=== PATIENT | male | born 1985 | race Caucasian/White ===

== ENCOUNTER 2020-02-18 19:41 | Emergency (ER) | payer OTHER, SELFPAY ==
[2020-02-18 19:45] VITALS: BP 162/91; PULSE 76; RESP 18; TEMP 36.8; O2SAT 98
[2020-02-18 20:15] VITALS: BP 165/98; PULSE 77; RESP 16; O2SAT 97
--- NOTE | 2020-02-18 20:15 | ED_ITS ---
HPI - Skin/Abscess/Foreign Bdy General: Chief complaint: Skin/Abscess/Foreign Body Stated complaint: spider bite Time Seen by Provider: 02/18/20 20:11 History of Present Illness: HPI narrative: Patient comes in with right ring finger redness and swelling. Was seen in urgent care today got antibiotics prescribed was unable to fill that prescription. Complains about pain to the right middle joint. Does have drainage from the wound site which is distal to t he right middle joint. Is on the dorsal surface. MD complaint: insect bite/sting Onset (ago): day(s) Tetanus up to date: yes Location: R hand Severity: moderate Severity scale (1-10): 6 Quality: aching and constant Pain Consistency: constant Relieving factors: none Exacerbating factors: movement Associated symptoms: Deny chills, fever(s), nausea or vomiting Review of Systems Const: Denies: fever(s), chills or body aches Eyes: Denies: change in vision or blurry vision ENMT: Denies: throat pain or nasal congestion Card: Denies: chest pain or dyspnea on exertion Resp: Denies: dyspnea, productive cough or non-productive cough GI: Denies: abdominal pain, nausea or vomiting : Denies: difficulty urinating Musc: Denies: extremity pain Skin/Breast: Reports: erythema, skin tenderness, skin swelling and other (Drainage on right ring finger); Denies: rash Neuro: Denies: headache(s) Psych: Denies: anxiety or depression Matthew/Lymph: Denies: easy bruising PFS ED PFSH: Social History (Updated 02/18/20 @ 18:37 by Keke Buchanan LPN) Smoking and tobacco status: never smoked Alcohol intake: never Physical Exam Const: COMMON NORMALS: no acute distress, average body habitus and patient oriented x3 HENMT: COMMON NORMALS: normocephalic HEAD & SCALP: normal to inspection and normocephalic FACE & SINUS: normal facial exam Eye: COMMON NORMALS: conjunctivae normal GENERAL EYE: appearance normal, both eyes and all related structures CONJUNCTIVA: Yes conjunctivae normal Neck/C-Spine: COMMON NORMALS: no JVD Chest: COMMONS NORMALS: normal inspection of the chest Resp: COMMON NORMALS: normal respiratory effort and clear to auscultation bilaterally AUSCULTATION: clear to auscultation bilaterally Cardio: COMMON NORMALS: no JVD, regular rate and regular rhythm RATE: regular rate RHYTHM: regular rhythm GI: COMMON NORMALS: Normal to inspection, nondistended, normoactive bowel sounds present Extremity: COMMON NORMALS: normal to inspection and full ROM RIGHT UPPER EXTREMITY: Yes hand & digits (Right ring finger with swelling at the MIP joint tender cannot move very well does have an open sore distal that and is draining this on the dorsal surface) Neuro: COMMON NORMALS: patient oriented x3 Procedures Abscess I/D Site: hand Side (if applicable): right Local Anesthetic: lidocaine 1% Amount of anesthesia used (mL): 0.5 Technique: incised with #11 blade Amount of fluid expressed (mL): 1 Irrigation: No Packing used?: none Course Vital Signs: Vital signs: Vital Signs Temperature 98.3 F 02/18/20 19:45 Pulse Rate 77 02/18/20 20:15 Respiratory Rate 16 02/18/20 20:15 Blood Pressure 165/98 02/18/20 20:15 Pulse Oximetry 97 02/18/20 20:15 MDM - Skin/Abscess/Foreign Bdy 2 Lab Data: Labs: Lab Results 02/18/20 Range/Units 18:22 WBC 15.7 H (4.0-10.0) 10^3/ uL RBC 4.57 (4.1-5.3) 10^6/u L Hgb 14.6 (11.7-16.6) g/dL Hct 43.3 (42.0-52.0) % MCV 94.7 H (80-94) fL MCH 31.9 (28.0-34.0) pg MCHC 33.7 (30.0-36.0) g/dL RDW 12.2 (12.1-15.1) % Plt Count 226 (130-400) 10^3/c mm MPV 10.7 H (7.4-10.4) fL Neut % (Auto) 82.8 % Lymph % (Auto) 6.8 % Waller % (Auto) 8.4 % Eos % (Auto) 1.5 % Baso % (Auto) 0.2 % Neut # (Auto) 13.01 H (1.8-7.7) 10^3/u L Lymph # (Auto) 1.1 (0.8-4.8) 10^3/u L Waller # (Auto) 1.3 H (0.2-0.9) 10^3/u L Eos # (Auto) 0.2 (0.0-0.8) 10^3/u L Baso # (Auto) 0.0 (0.0-0.1) 10^3/u L Nucleated RBC % (a uto) 0 % Nucleated RBCs # 0.0 /100WBC Discharge Plan Discharge Patient Disposition: Home Clinical Impression: Cellulitis Qualifiers: Site of cellulitis: extremity Site of cellulitis of extremity: finger Laterality: right Qualified Code(s): L03.011 - Cellulitis of right finger Condition: Stable Prescriptions: New hydrocodone-acetaminophen 5-325 mg tablet 1 tab PO Q6H PRN (Reason: pain) Qty: 7 RF: 0 No Action No Known Home Medications RF: 0 Discharge Orders: Discharge Order (Routine); Ordered 02/18/20 Ordered By: Angel Wang Discharge Diet: Usual diet Discharge Activity: Increase activity as tolerated Patient Instructions: Cellulitis (ED) Activity Restrictions/Additional Instructions: Follow-up with medical provider as directed. Take medications as prescribed. Return to the ER or your medical provider if condition worsens. Please read and understand discharge instructions. If any questions ask please. 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
[2020-02-18 20:34] LABS: Basophils % 0.2 %; Eosinophils # 0.2 10^3/uL (0.0-0.8); Eosinophils % 1.5 %; Hematocrit 43.3 % (42.0-52.0); Hemoglobin 14.6 g/dL (11.7-16.6); Lymphocytes # 1.1 10^3/uL (0.8-4.8); Lymphocytes % 6.8 %; Mean Corpuscular HGB Conc 33.7 g/dL (30.0-36.0); Mean Corpuscular Hemoglobin 31.9 pg (28.0-34.0); Mean Corpuscular Volume 94.7 fL (80-94); Mean Platelet Volume 10.7 fL (7.4-10.4); Monocytes # 1.3 10^3/uL (0.2-0.9); Monocytes % 8.4 %; Neutrophils # 13.01 10^3/uL (1.8-7.7); Neutrophils % 82.8 %; Nucleated Red Blood Cells % 0 %; Platelet Count 226 10^3/cmm (130-400); Red Blood Count 4.57 10^6/uL (4.1-5.3); Red Cell Distribution Width 12.2 % (12.1-15.1); White Blood Count 15.7 10^3/uL (4.0-10.0)
[2020-02-18] MEDS: HYDROcodone-acetaminophen 7.5-325 mg Tablet 1 TAB PO (20:35)
[2020-02-18] MEDS: cefTRIAXone 1,000 MG in sodium chloride 0.9% (plus) 50 ML 100 MG IV (20:43)
[2020-02-18 21:24] VITALS: BP 145/80; PULSE 82; RESP 18; O2SAT 97
== END 2020-02-18 21:27 | disposition home or self-care (01) ==
PROVIDERS: Emergency Provider Nurse Practitioner Family
DX: L03.011 Cellulitis of right finger (principal); L02.511 Cutaneous abscess of right hand
CPT/HCPCS: 10060; 12345; 36415; 85025; 87040; 87070; 96365; 99283; J0696

== ENCOUNTER 2020-02-19 05:51 | Inpatient (IN) | payer SELFPAY ==
[2020-02-19] VITALS (14 sets, daily range): BP systolic 114–143; BP diastolic 71–90; PULSE 70–98; RESP 14–20; TEMP 36.8–37.4; O2SAT 96–98; BMI 27.3
--- NOTE | 2020-02-19 05:57 | ED_ITS ---
HPI - Animal Bite General: Chief Complaint: Animal Bite Stated Complaint: spider bite Time Seen by Provider: 02/19/20 05:54 History of Present Illness: HPI narrative: 34-year-old male presents to the ER via EMS. This is his third visit in 2 days for a reported insect bite possible spider bite on his right third finger. He was initially seen by SHANTHI and prescribed Bactrim. He returned to the emergency room later the same day/last night and seen Angel Wang, and was given hydrocodone. Returns to the emergency room this morning via EMS. Overnight the swelling in his hand is increased to the point where he has swelling in the entire hand. He can flex and extend at the wrist without any significant pain and he is noticed significant swelling on the input and side of the elbow he even has discomfort up in the axilla. He is not had any shortness of breath he is not had any cough. He denies being urinating when he is aware of that is been COVID positive. MD complaint: other (Possible insect bite) Onset (ago): day(s) (1) Animal: other (Patient feels it was a spider bite was not witnessed) Mechanism: bite Location: other Location - Extremities: Right: hand Pain description: sharp Associated symptoms: Reports no associated symptoms; Deny chills or fever(s) Treatments prior to arrival: wound dressing(s) Review of Systems Const: Denies: fever(s), chills, body aches, change in appetite, fatigue or malaise ENMT: Denies: throat pain, ear or mastoid pain, nasal discharge or nasal congestion Card: Denies: chest pain, edema, dyspnea on exertion or orthopnea Resp: Denies: dyspnea, productive cough or non-productive cough GI: Denies: abdominal pain, nausea, vomiting, hematemesis, coffee ground emesis, diarrhea, constipation, bloating, hematochezia or melena : Denies: flank pain, dysuria, urinary frequency or urinary urgency Skin/Breast: Denies: rash or pruritus PFSH ED PFSH: Medical History (Updated 02/19/20 @ 06:33 by Jose E Alarcon DO) No significant past medical history Surgical History (Updated 02/19/20 @ 06:31 by Jose E Alarcon DO) No history of previous surgery Social History Smoking and tobacco status: never smoked Alcohol intake: never Physical Exam Const: COMMON NORMALS: no acute distress GENERAL APPEARANCE: cooperative and comfortable ORIENTATION/CONSCIOUSNESS: Yes awake, Yes oriented to person, Yes oriented to place and Yes oriented to time Eye: COMMON NORMALS: Equal, round and reactive pupils present, EOMs intact bilaterally, conjunctivae normal and no scleral icterus CONJUNCTIVA: Yes conjunctivae normal PUPIL: Yes Equal, round and reactive pupils present Neck/C-Spine: COMMON NORMALS: full ROM, no lymphadenopathy, supple and no JVD Lymph: LYMPHATIC: no lymphadenopathy noted and no lymphedema noted Resp: COMMON NORMALS: normal respiratory effort, No retractions, No use of accessory muscles and clear to auscultation bilaterally AUSCULTATION: clear to auscultation bilaterally Cardio: COMMON NORMALS: no JVD, regular rate, regular rhythm and No murmurs present (Cardio) RATE: regular rate RHYTHM: regular rhythm GI: COMMON NORMALS: Soft to palpation and No hepatosplenomegaly present AUSCULTATION: Yes normoactive bowel sounds PALPATION: Yes Soft to palpation, No Tenderness to palpation present (GI), No Guarding due to palpation present (GI) and Yes No hepatosplenomegaly present Extremity: NARRATIVE EXTREMITY EXAM: Right third finger is inflamed and swollen with some sloughing of the skin there is a definite abscess point. There is some necrotic skin on the door on the lateral aspect of the third finger there is no active drainage there is no palpable fluctuant areas. He does have significant amount of epitrochlear lymphadenopathy with swollen matted lymph nodes the distal bicep is also somewhat inflamed and firm. There is significant swelling throughout the whole hand he can flex and extend at the wrist without any pain with passive range of motion. There is no swelling of the forearm itself there is no palpable lymph nodes in the axilla although it is somewhat tender. There is no lymphatic streaking at this point. Neuro: SENSORIUM/ORIENTATION: Yes oriented to person, Yes oriented to place and Yes oriented to time Skin: COMMON NORMALS: no rashes or lesions noted GENERAL SKIN EXAM: no rashes or lesions noted Course Vital Signs: Vital signs: Vital Signs Temperature 99.3 F 02/19/20 05:56 Pulse Rate 96 02/19/20 07:49 Respiratory Rate 16 02/19/20 07:49 Blood Pressure 139/84 02/19/20 07:49 Pulse Oximetry 97 02/19/20 07:49 MDM - Animal Bite MDM Narrative: Medical decision making narrative: This is patient's third visit in approximately 24 hours. Is is advanced quite significantly in a short period of time reviewing the previous notes. He is definitely failed outpatient therapy and I do not think at this point that oral antibiotics will be adequate for treatment for the infection suspect this is MRSA he does have a little bit of a low-grade fever as well patient has been appropriately cultured unfortunately really cannot culture the anything from the finger at this time. He has had blood cultures will start him on IV vancomycin will admit to the hospital for inpatient care and consultation by surgery. Reviewed the ER visit last night look like they did drain a little bit of fluid from it unfortunately does not appear a culture was done. Will admit to hospitalist consult orthopedics Lab Data: Labs: Lab Results 02/19/20 02/19/20 02/19/20 Range/Units 06:43 06:43 06:43 WBC 16.3 H (4.0-10.0) 10^3/ uL RBC 4.44 (4.1-5.3) 10^6/u L Hgb 14.2 (11.7-16.6) g/dL Hct 41.1 L (42.0-52.0) % MCV 92.6 (80-94) fL MCH 32.0 (28.0-34.0) pg MCHC 34.5 (30.0-36.0) g/dL RDW 12.1 (12.1-15.1) % Plt Count 208 (130-400) 10^3/c mm MPV 10.9 H (7.4-10.4) fL Neut % (Auto) 82.1 % Lymph % (Auto) 6.0 % Schley % (Auto) 10.4 % Eos % (Auto) 1.0 % Baso % (Auto) 0.2 % Neut # (Auto) 13.33 H (1.8-7.7) 10^3/u L Lymph # (Auto) 1.0 (0.8-4.8) 10^3/u L Schley # (Auto) 1.7 H (0.2-0.9) 10^3/u L Eos # (Auto) 0.2 (0.0-0.8) 10^3/u L Baso # (Auto) 0.0 (0.0-0.1) 10^3/u L Nucleated RBC % (a uto) 0 % Nucleated RBCs # 0.0 /100WBC ESR 18 H (0-10) mm/hr Sodium 134 L (136-145) mmol/L Potassium 3.5 (3.5-5.1) mmol/L Chloride 99 (98-107) mmol/L Carbon Dioxide 26 (22-29) mmol/L Anion Gap 12.5 (5-19) BUN 7 (6-20) mg/dL Creatinine 0.5 L (0.7-1.2) mg/dL GFR Calculation 192.7 H (90-130) mL/min Glucose 127 H (65-115) mg/dL Calculated Osmolal ity 275 L (285-295) mOsm/k g Calcium 8.4 L (8.5-10.5) mg/dL Total Bilirubin 0.8 (0.15-1.2) mg/dL AST 22 (0-40) U/L ALT 25 (0-41) U/L Alkaline Phosphata se 69 (40-130) IU/L C-Reactive Protein 34.2 H (0.0-4.9) mg/L Total Protein 7.2 (6.6-8.7) g/dL Albumin 4.3 (3.5-5.2) g/dL Globulin 2.9 (1.3-4.6) g/dL Discharge Plan Discharge Patient Disposition: Admitted As Inpatient Admit Provider: Nicolle Guzman Clinical Impression: Cellulitis Condition: Stable Coding Level of Care Code 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
--- NOTE | 2020-02-19 06:28 | CTR_ITS ---
PROCEDURE INFORMATION: Exam: CT Right Upper Extremity With Contrast, Hand Exam date and time: 02/19/2020 6:30 AM Age: 34 years old Clinical indication: Injury or trauma; Injury history: Spider bite; Initial encounter; Ring finger; Right; Additional info: Infection R 3rd finger TECHNIQUE: Imaging protocol: CT of the Right upper extremity with intravenous contrast was performed. Exam focused on the hand. Radiation optimization: All CT scans at this facility use at least one of these dose optimization techniques: automated exposure control; mA and/or kV adjustment per patient size (includes targeted exams where dose is matched to clinical indication); or iterative reconstruction. Contrast material: OMNI 300; Contrast volume: 95 ml; Contrast route: INTRAVENOUS (IV); COMPARISON: No relevant prior studies available. RADIATION DOSE METRICS: Total DLP (mGy-cm): 591.5 FINDINGS: Bones/joints: osseous structures of the hand are without an acute process. Distal radioulnar joint and radiocarpal joints grossly normal. Carpus without fracture. Metacarpals and phalangeal without fracture or dislocation. No erosive changes or periarticular calcifications. Soft tissues: Soft tissue swelling about the proximal phalanx and adjacent metacarpal of the 4th ray most pronounced dorsally. No visualized abscess. CT/CT hand RT w con [id number] IMPRESSION: Soft tissue swelling about the proximal phalanx and adjacent metacarpal of the 4th ray most pronounced dorsally. No visualized abscess. Consider MRI if indicated. No evidence of osteomyelitis . Radiation Dose CTDIVOL = (mGy): DLP = 591.5 (mGy-cm)
[2020-02-19 06:58] LABS: Basophils % 0.2 %; Eosinophils # 0.2 10^3/uL (0.0-0.8); Hematocrit 41.1 % (42.0-52.0); Hemoglobin 14.2 g/dL (11.7-16.6); Mean Corpuscular HGB Conc 34.5 g/dL (30.0-36.0); Mean Corpuscular Volume 92.6 fL (80-94); Mean Platelet Volume 10.9 fL (7.4-10.4); Monocytes # 1.7 10^3/uL (0.2-0.9); Monocytes % 10.4 %; Neutrophils # 13.33 10^3/uL (1.8-7.7); Neutrophils % 82.1 %; Nucleated Red Blood Cells % 0 %; Platelet Count 208 10^3/cmm (130-400); Red Blood Count 4.44 10^6/uL (4.1-5.3); Red Cell Distribution Width 12.1 % (12.1-15.1); White Blood Count 16.3 10^3/uL (4.0-10.0)
[2020-02-19] MEDS: morphine 4 mg/mL SDV 1 mL IVP (06:58)
[2020-02-19] MEDS: ondansetron 2 mg/ML SDV 2 mL 4 MG IVP (06:59)
[2020-02-19] MEDS: vancomycin 1,000 MG in sodium chloride 0.9% 250 ML 250 MG IV (06:59)
[2020-02-19] MEDS: sodium chloride 0.9% 1,000 ML 999 ML IV (07:00)
--- NOTE | 2020-02-19 07:08 | PC.NURSE ---
Received report , assumed care. No changes noted. Fluids and Rx infusing. All meds given prior to shift change.
[2020-02-19 07:10] LABS: Alanine Aminotransferase 25 U/L (0-41); Albumin Level 4.3 g/dL (3.5-5.2); Alkaline Phosphatase 69 IU/L (40-130); Anion Gap 12.5 (5-19); Aspartate Amino Transferase 22 U/L (0-40); Blood Urea Nitrogen 7 mg/dL (6-20); C Reactive Protein 34.2 mg/L (0.0-4.9); Calcium 8.4 mg/dL (8.5-10.5); Carbon Dioxide 26 mmol/L (22-29); Chloride 99 mmol/L (98-107); Globulin 2.9 g/dL (1.3-4.6); Glomerular Filtration Rate 192.7 mL/min (90-130); Glucose 127 mg/dL (65-115); Osmolality Calculated 275 mOsm/kg (285-295); Potassium 3.5 mmol/L (3.5-5.1); Sodium 134 mmol/L (136-145); Total Bilirubin 0.8 mg/dL (0.15-1.2); Total Protein 7.2 g/dL (6.6-8.7)
[2020-02-19 07:34] LABS: Erythrocyte Sedimentation Rate 18 mm/hr (0-10)
--- NOTE | 2020-02-19 07:50 | PC.NURSE ---
Fluids and Rx infusing
--- NOTE | 2020-02-19 09:30 | MR_ITS ---
WS: [id number] MRI RIGHT HAND with and without CONTRAST. COMPARISON: RIGHT hand radiographs 02/19/2020 Multiplanar, multisequence imaging is performed with and without contrast. There is significant soft tissue edema along the dorsal surface of the RIGHT hand. Predominantly post erior to the fourth and fifth metacarpals and fourth phalanx. Soft tissue edema surrounds the fourth metacarpal head and the proximal phalanx. Subcutaneous edema extends through nearly the entire fourth finger. No focal collection or abscess is identified. On the postcontrast images there is diffuse so ft tissue enhancement. No osteomyelitis identified but there is significant motion artifact. Patient was unable to remain still for this examination. No enhancement within the joints. MR/MR hand RT wo/w con [id number] IMPRESSION: 1. Significant cellulitis over the dorsal surface of the hand and through the fourth phalanx. 2. No soft tissue abscess. 3. No osteomyelitis identified but the postcontrast images are significantly l imited by motion.
--- NOTE | 2020-02-19 10:59 | P.HP_ITS ---
Providers/Chief Complaint Admitting Physician: Nicolle Guzman DO Chief Complaint: spider bite History of Present Illness Chris Roe is a 34 year old male with no known past medical history that presented to the emergency department today due to increasing swelling in the right hand, fourth digit. He stated that this all started approximately 2 to 3 days ago. He stated that he works at a [employer] and believe that he was bit by a spider. He stated that he began having some redness and pain in the fourth digit that continued to progress. He went to urgent care yesterday was prescribed Bactrim, however he reported by the time he made it to the pharmacy the pharmacy was closed and he was unable to fill the prescription. He stated that he began to get worse today therefore came into the ER for further evaluation and treatment. He stated that he did have fever and chills last night and swelling and pain that was extending into his right elbow. Patient denies any other rashes or skin changes, no sick contacts, no exposure to anyone positive or under investigation for COVID-19. He denies any chest pain, no shortness of breath otherwise has been doing well except for this. Patient denies any numbness or tingling in his hand but does report limited did range of motion in the fourth digit due to the swelling. Patient was seen and evaluated in the emergency department and admitted for further evaluation and treatment due to concern for right hand cellulitis. Dr. Peterson, orthopedic surgeon was consulted while patient was in the ED. Review of Systems Const: Reports: fever(s) and chills Eyes: Denies: change in vision ENMT: Denies: nasal congestion Card: Denies: chest pain, palpitations or edema Resp: Denies: dyspnea, productive cough or hemoptysis GI: Denies: abdominal pain, nausea, vomiting, diarrhea, constipation, hemato chezia or melena : Denies: dysuria or hematuria Musc: Reports: extremity pain and other (Limited range of motion in the right fourth finger with increased swelling and erythema, pain extending into the right elbow); Denies: muscle cramps Skin/Breast: Reports: new lesions and other (Swelling and redness in the right fourth digit extending to the elbow with swelling in the right elbow and redness); Denies: rash Neuro: Denies: headache(s) or dizziness Psych: Denies: anxiety or depression Endo: Denies: polyuria or hot flashes Matthew/Lymph: Denies: easy bruising or easy bleeding Medications/Allergies Home Medications Medication Instructions Recorded Confirmed Last Taken Type hydrocodone-acetaminophen 1 tab PO Q6H PRN #7 tab 02/18/20 02/19/20 02/18/20 Rx Allergies Allergy/AdvReac Type Severity Reaction Status Date / Time No Known Allergies Allergy Verified 02/19/20 08:16 PFSH Acute PFSH: Medical History No significant past medical history Surgical History No history of previous surgery Family History (Updated 02/19/20 @ 11:02 by Nicolle Guzman DO) Mother No problems noted. Father No problems noted. Social History (Updated 02/19/20 @ 11:02 by Nicolle Guzman DO) Smoking and tobacco status: never smoked Alcohol intake: never Substance/Drug Use: never Current occupation: Works in a [employer] Supplemental PFSH Information: Patient denies any family history of heart d isease, diabetes, or stroke Vitals/I&O/Wt Last Vital Signs Temp 99.3 F 02/19/20 05:56 Pulse 96 02/19/20 07:49 Resp 16 02/19/20 07:49 BP 139/84 02/19/20 07:49 Pulse Ox 97 02/19/20 07:49 Weight last 48 hrs Weight 79.379 kg Physical Exam Const: COMMON NORMALS: patient oriented x3 and alert GENERAL APPEARANCE: cooperative and disheveled ORIENTATION/CONSCIOUSNESS: Yes awake, Yes oriented to person, Yes oriented to place and Yes oriented to time HENMT: COMMON NORMALS: normocephalic and atraumatic HEAD & SCALP: normocephalic and atraumatic Eye: COMMON NORMALS: Equal, round and reactive pupils present PUPIL: Yes Equal, round and reactive pupils present Neck/C-Spine: COMMON NORMALS: supple GENERAL: Yes normal visual inspection Resp: COMMON NORMALS: normal respiratory effort and clear to auscultation bilaterally EFFORT & INSPECTION: Yes able to speak in complete sentences AUSCULTATION: clear to auscultation bilaterally, no rhonchi and no wheezes Cardio: COMMON NORMALS: regular rate, regular rhythm and No murmurs present (Cardio) RATE: regular rate RHYTHM: regular rhythm GI: COMMON NORMALS: Soft to palpation and non-tender INSPECTION: No abdominal distension AUSCULTATION: Yes normoactive bowel sounds PALPATION: Yes Soft to palpation Extremity: COMMON NORMALS: no clubbing, cyanosis or edema and no calf tenderness NARRATIVE EXTREMITY EXAM: Patient has swelling and erythema in the right fourth digit with tenderness and limited range of motion. Patient remains able to adduct and abduct digits of the right hand and able to make a fist however due to swelling in the fourth digit not able to move his much. Patient does have normal sensation in the right hand, normal pulses and capillary refill in the right hand. Swelling and induration in the medial side of the right elbow Neuro: COMMON NORMALS: patient oriented x3, CN's II-XII intact bilaterally, moves all extremities and no focal motor deficits SENSORIUM/ORIENTATION: Yes alert, Yes oriented to person, Yes oriented to place and Yes oriented to time SPEECH: speech normal Psych: COMMON NORMALS: mental status grossly normal and cooperative Skin: NARRATIVE SKIN EXAM: Skin changes as noted above with swelling and erythema to the right fourth digit of the hand and erythema in the medial elbow Data : 02/19/20 06:43 02/19/20 06:43 Micro: Microbiology 02/19/20 06:45 Blood Culture - Preliminary Blood SPECIMEN COLLECTED 02/19/20 06:40 Blood Culture - Preliminary Blood SPECIMEN COLLECTED Other CT: I personally reviewed and interpreted this imaging study as follows: Radiologist's impression: CT hand, right with contrast FINDINGS: Bones/joints: osseous structures of the hand are without an acute process. Distal radioulnar joint and radiocarpal joints grossly normal. Carpus without fracture. Metacarpals and phalangeal without fracture or dislocation. No erosive changes or periarticular calcifications. Soft tissues: Soft tissue swelling about the proximal phalanx and adjacent metacarpal of the 4th ray most pronounced dorsally. No visualized abscess. A&P Assessment and plan (1) Cellulitis: Patient with cellulitis of the right fourth digit of the hand Had previously been prescribed Bactrim, however unable to fill prescription and due to rapid worsening of infectious process presented back to the emergency department. Will admit to the hospital and continue on IV broad-spectrum antibiotics with vancomycin and Zosyn Orthopedic surgeon, Dr. Peterson consulted in the ED, appreciate recommendations and assistance in patient's care We will further evaluate with MRI of the hand due to the significant swelling and erythema Patient reports that he was able to express purulent drainage from his finger yesterday, concern for underlying abscess development Status: Acute Qualifiers: Site of cellulitis of extremity: finger Laterality: right Additional A&P Information DVT prophylaxis: SCDs Diet: Regular diet CODE STATUS: Full code Attestations Medical Necessity Statement*: Patient requires hospitalization due to cellulitis of the right hand, expected stay greater than 2 midnights Coding Level of Care Code Acute General Operations Agent for [facility]en Diagnoses Cellulitis L03.90 Site of cellulitis of extremity: finger Laterality: right
[2020-02-19] MEDS: piperacillin-tazobactam 3.375 GM in sodium chloride 0.9% (plus) 50 ML IV ×2 (12:29→20:59)
[2020-02-19] MEDS: sodium chloride 0.9% 1,000 ML 75 ML IV ×2 (12:29→21:01)
[2020-02-19] MEDS: ibuprofen 200 mg Tablet 400 MG PO (12:37)
--- NOTE | 2020-02-19 14:26 | P.CONIM_ITS ---
Providers/Reason For Consult Consulting Physican/Specialty*: Matt Peterson DO Orthopedic Surgery Reason for Consult*: cellulitis right hand Attending Physician: Nicolle Guzman DO History of Present Illness History of Present Illness Chris Roe is a 34 year old male. He works at a [employer]. He believes that 4 days ago he was moving would and may have sustained a puncture wound versus insect bite such as from a spider. He developed progressive redness and swelling. He went to urgent care yesterday I recommended that he take oral antibiotic Bactrim. He went to the pharmacy but the pharmacy was closed. He presented to the emergency room because he had progressive swelling and increased pain in his right hand. He is right-hand dominant. He has been in good health. He denies any medication allergies. He has been experiencing fever and chills. No complaints of numbness or tingling in the digits of the affected right hand. Review of Systems Const: Reports: fever(s) and chills Card: Denies: chest pain or palpitations Resp: Denies: dyspnea, productive cough or non-productive cough GI: Denies: nausea or vomiting Musc: Reports: extremity swelling (right hand particularly ring fingerht hand particularly ring finger all) Neuro: Denies: numbness in extremities or sensory changes Meds/Allergies Home Medications and Allergies Home Medications Medication Instructions Recorded Confirmed Last Taken Type hydrocodone-acetaminophen 1 tab PO Q6H PRN #7 tab 02/18/20 02/19/20 02/18/20 Rx Allergies Allergy/AdvReac Type Severity Reaction Status Date / Time No Known Allergies Allergy Verified 02/19/20 08:16 Current Medications Current Medications Generic Name Dose Route Start Last Admin Trade Name Freq PRN Reason Stop Dose Admin Sodium Chloride 1,000 mls @ 75 mls/hr 02/19/20 11:19 02/19/20 12:29 Sodium Chloride 0.9% IV 75 mls/hr .[id number] LIUS Administration Piperacillin Sod/Tazobactam 50 mls @ 12.5 mls/hr 02/19/20 12:45 02/19/20 12:29 Sod 3.375 gm/ Sodium Chloride IV 12.5 mls/hr Q8H LUIS Administration Protocol As Directed PFSH Acute PFSH: Medical History No significant past medical history Surgical History No history of previous surgery Family History Mother No problems noted. Father No problems noted. Social History Smoking and tobacco status: never smoked Alcohol intake: never Substance/Drug Use: never Current occupation: Works in a [employer] Vitals/I&O/Wt Last Vital Signs Temp 98.6 F 02/19/20 11:19 Pulse 73 02/19/20 11:19 Resp 18 02/19/20 11:19 BP 138/76 02/19/20 11:19 Pulse Ox 97 02/19/20 11:19 02/18/20 02/19/20 02/19/20 22:59 06:59 14:59 Intake Total 120 / 120 Balance 120 / 120 Weight last 48 hrs Weight 175 lb Physical Exam Narrative: EXAM NARRATIVE: 34-year-old white male in no acute distress. He is alert and cooperative. His speech is fluent. Membranes are moist. Sclerae are anicteric. Heart is regular rate and rhythm without murmur Lungs are clear to auscultation without rales crackles or wheezes. Abdomen is soft and nontender bowel sounds are active. Examination of the right hand shows a swollen right ring finger with pyelonephritis changes to the skin near the level of the middle phalanx to the proximal aspect of the distal phalanx. No fluctuance noted. No erythema or tenderness to palpation on the palmar surface of the hand that might suggest flexor tenosynovitis. He does have streaking to the distal wrist that is faint at the present time but is present. No effusion of the wrist is appreciated. Sensation is intact to light touch. The patient is able to flex and extend his fingers without extreme discomfort. White blood cell count elevated at 16.3 Hemoglobin and hematocrit are 14.2 and 41.4 respectively. Electrolytes BUN and creatinine are within normal limits. Blood cultures have been collected. Review of x-rays in the PACS system shows some soft tissue swelling to the right ring finger no evidence of synovitis as would be evidenced by widening of the joint spaces particularly in the right ring finger. No underlying bony changes Review of the CT scan shows soft tissue swelling localized mostly to the dorsum of the right ring finger. Again no bony changes. Review of MRI prior to final report available shows soft tissue swelling and no changes within the bone marrow. Data Micro: Micro: Microbiology 02/19/20 06:45 Blood Culture - Pr eliminary Blood SPE[facility] TAB 02/19/20 06:40 Blood Culture - Pr eliminary Blood SPECIMEN [facility] A&P Assessment and plan (1) Cellulitis: 34-year-old white male with cellulitis of the right hand and particularly involving the right ring finger. Agree with broad-spectrum antibiotics. We'll change patient from oral Motrin to scheduled ketorolac to decrease inflammation and swelling as well as for nonnarcotic pain relief. Continue by mouth hydrocodone. I will order IV morphine for pain control. I will follow patient closely with you. I will make him nothing by mouth after midnight tonight and see him in the morning on 02/20/2020. At some point during this hospitalization he may be a candidate for incision and drainage if he develops an area that I believe has a focal abscess. At the present time he has diffuse swelling but no specific abscess. I discussed with him principles of hand surgery in performing minimal debridement so as to not leave exposed bone tendons or neurovascular bundles because of potential morbidity at that could result in following surgery. He was agreeable with this plan. Status: Acute Qualifiers: Laterality: right Site of cellulitis of extremity: finger Consult Attestations Medical Necessity Statement: Patient has a serious infection of his right hand specifically involving the right ring finger. It's unclear as if he will require surgical intervention. He requires broad-spectrum intravenous antibiotics for now. He will require greater than 2 overnight stays to treat his serious right hand infection. Time Spent in Patient Care: 16 - 35 minutes (>than 50% of time spent in counselling and/or direct pt care on unit) . Coding Level of Care Code Acute Welding Machine Operator [place] for Victor Manuel Morales Diagnoses Cellulitis L03.90 Laterality: right Site of cellulitis of extremity: finger
[2020-02-19] MEDS: HYDROcodone-acetaminophen 5-325 mg Tablet 1 TAB PO (16:12)
[2020-02-19] MEDS: ketorolac 30 mg/mL INJ IVP ×2 (16:12→20:59)
[2020-02-19] MEDS: sodium chloride 0.9% 1,000 ML 100 ML IV (16:13)
--- NOTE | 2020-02-19 19:36 | PC.NURSE ---
right hand with edema elevated on pillow. Redness and edema to finger on right hand extenting to arm reports better.
[2020-02-20] VITALS (16 sets, daily range): BP systolic 106–129; BP diastolic 62–84; PULSE 62–81; RESP 13–20; TEMP 36.1–37.1; O2SAT 95–99
[2020-02-20] MEDS: ketorolac 30 mg/mL INJ IVP ×4 (02:26→21:09)
[2020-02-20] MEDS: piperacillin-tazobactam 3.375 GM in sodium chloride 0.9% (plus) 50 ML IV ×3 (04:26→21:09)
[2020-02-20 05:58] LABS: Basophils % 0.3 %; Eosinophils # 0.3 10^3/uL (0.0-0.8); Eosinophils % 2.3 %; Hemoglobin 13.4 g/dL (11.7-16.6); Lymphocytes # 1.4 10^3/uL (0.8-4.8); Lymphocytes % 10.6 %; Mean Corpuscular HGB Conc 33.5 g/dL (30.0-36.0); Mean Corpuscular Hemoglobin 32.4 pg (28.0-34.0); Mean Corpuscular Volume 96.9 fL (80-94); Mean Platelet Volume 10.3 fL (7.4-10.4); Monocytes # 1.3 10^3/uL (0.2-0.9); Monocytes % 9.9 %; Neutrophils # 10.12 10^3/uL (1.8-7.7); Neutrophils % 76.4 %; Nucleated Red Blood Cells % 0 %; Platelet Count 182 10^3/cmm (130-400); Red Blood Count 4.13 10^6/uL (4.1-5.3); Red Cell Distribution Width 12.5 % (12.1-15.1); White Blood Count 13.3 10^3/uL (4.0-10.0)
[2020-02-20 06:21] LABS: Anion Gap 9.6 (5-19); Blood Urea Nitrogen 9 mg/dL (6-20); Calcium 8.7 mg/dL (8.5-10.5); Carbon Dioxide 28 mmol/L (22-29); Chloride 105 mmol/L (98-107); Glomerular Filtration Rate 156.1 mL/min (90-130); Glucose 108 mg/dL (65-115); Osmolality Calculated 283 mOsm/kg (285-295); Potassium 4.6 mmol/L (3.5-5.1); Sodium 138 mmol/L (136-145)
--- NOTE | 2020-02-20 07:56 | PM.PN ---
Subjective Subjective: Interval history: 34-year-old white male being treated for severe infection right ring finger and cellulitis of the right hand. No complaints of increased pain overnight. No fever chills Vitals/I&O/Wt Last Vital Signs Temp 98.6 F 02/20/20 03:31 Pulse 80 02/20/20 03:31 Resp 16 02/20/20 03:31 BP 110/63 02/20/20 03:31 Pulse Ox 95 02/20/20 03:31 02/19/20 02/20/20 02/20/20 22:59 06:59 14:59 Intake Total 1290 / 1410 300 / 1710 Output Total 850 / 850 Balance 440 / 560 300 / 860 Weight last 48 hrs Weight 174 lb Weight 175 lb Physical Exam Narrative: EXAM NARRATIVE: 34-year-old white male in no acute distress. He is alert and cooperative. Erythema in the outlined area on the dorsum of the right hand has actually diminished. The discoloration reddish and purple in color on the dorsum of the right ring finger has intensified. At the skin crease over the DIP joint his skin has raised and there appears to be purulent material underneath the skin. He has no pain in the palm. Sensation of the digits is intact. 3 blood cultures are in the system with no growth to date on 1 that is been reported White blood cell count has decreased down to 13.3 today. Data : 02/20/20 05:46 02/20/20 05:46 Micro: Microbiology 02/19/20 06:45 Blood Culture - Preliminary Blood NEGATIVE TO DATE 02/19/20 06:40 Blood Culture - Preliminary Blood NEGATIVE TO DATE A&P Assessment and plan (1) Abscess of right ring finger: Plan will be to take the patient to surgery today for urgent incision and drainage of his right ring finger. It appears the infection is largely localized to the dorsum of the finger both clinically and by imaging studies performed yesterday. Cultures to be taken intraoperatively is no cultures been taken to date at the wound site. Patient is agreeable to proceed with surgery. Status: Acute (2) Cellulitis: Status: Acute Qualifiers: Laterality: right Site of cellulitis of extremity: finger Site of cellulitis: extremity Qualified Code(s): L03.011 - Cellulitis of right finger Attestations Medical Necessity Statement*: Patient requires continued inpatient level care for surgery today and aftercare following surgery and administration of intravenous antibiotics Time Spent in Patient Care: 16 - 35 minutes (>than 50% of time spent in counselling and/or direct pt care on unit). Coding Level of Care Code Acute Account General Manager for Victor Manuel Morales Diagnoses Abscess of right ring finger L02.511 Cellulitis L03.011 Laterality: right Site of cellulitis of extremity: finger Site of cellulitis: extremity
--- NOTE | 2020-02-20 08:01 | P.OP_ITS ---
Operative Report Date of procedure: February 20, 2020 Pre-op Diagnosis: abscess right ring finger Post-op diagnosis: same Procedure Done: Incision and drainage abscess right ring finger Debridement of skin and subcutaneous tissue right ring finger Implants: none Specimens removed/disposition: Aerobic and anaerobic cultures right ring finger Pathology: other (see above cultures) Surgeon: Matt Peterson Anesthesia: General Estimated blood loss (mL): 5 Tourniquet time (min): 28 IV fluids (mL): 500 Complications: No apparent complications Findings: Reddish to purple skin changes on dorsum of the right ring finger. Skin has elevated over the distal aspect of the finger in the area of the skin crease over the DIP joint. Purulent material has developed overnight in this area. No fluctuance has been noted yesterday. at the time of surgery the removed with forceps elevated skin that had a collection of purulent material underneath it. There was an area of full- thickness skin loss on the dorsum of the right ring finger measuring 6 mm medial to lateral 1 cm proximal distal an approximate 4 mm in depth. Underlying tendon was exposed. No apparent septic arthritis involving the underlying DIP joint. Bone was grossly intact. Collection of purulent material underneath the skin extended to the mid portion of the dorsum of the proximal phalanx. After debridement of skin subcutaneous tissue and cleansing area of phlegmon tissues had a marked improvement appearance allowing partial wound closure. I was unable to close fully and get apposition of the skin edges at the area of full- thickness skin loss at the level of the DIP joint. Silver sorb gel was placed in the wound to prevent desiccation of the tendon and to promote granulation tissue. Condition: stable Disposition: PACU Brief History: 34-year-old white male who 4 to 5 days ago may have same-day puncture wound versus insect bite to his right ring finger. He was seen in outpatient clinic after developing increased pain and swelling. He was given a prescription for Bactrim to treat a cellulitis. He was unable to fill the prescription due to the lateness of the hour when he was being seen. He later presented to the emergency room yesterday. He was diagnosed with a severe infection to the right hand and finger. He was admitted for intravenous antibiotics orthopedic consultation was requested. Imaging studies favored the diagnosis of cellulitis with no evidence of osteomyelitis or septic arthritis of the hand. Clinically no evidence of suppurative flexor tenosynovitis. Overnight his redness that was developing on the dorsum of the hand has actually diminished and he is developed area of superficial skin separation and underneath the skin purulent material is visible. I believe he is has now developed an area of abscess with spontaneous drainage contained by an intact layer of superficial skin. Plan for today will be to take the patient to surgery to incise drain and debride the area of skin over the dorsum of the area obtain cultures loosely close the wound to allow for secondary closure and return to the floor for continued intravenous antibiotics and hopefully based on cultures be able to transition over to oral antibiotics at time of discharge. Patient is aware he may require further surgery the risks associate with anesthesia. He is agreeable to proceed with surgery. Procedure: 600 mg clindamycin Patient identified. Surgical site was signed. Surgical permit was signed. The patient was taken to the operating room. He received 600 mg of clindamycin intravenously for surgical prophylaxis. His placed supine on the operating room table. His placed under general anesthesia without difficulty. A tourniquet was placed about the upper aspect of the right upper extremity. The patient was then sterilely prepped and draped usual fashion. A timeout was performed. The operative limb was exsanguinated with elevation and the end was inflated to 250 mmHg pressure. I first took a forceps and delicately peeled away the exfoliating skin on the dorsum of the distal aspect of the right ring finger. This layer of skin that was exfoliating spontaneously there is a collection of purulent material. The origin of the purulent material was a open wound on the dorsum of the right ring finger at the level of the DIP joint. I debrided necrotic tissue that was large of the distal portion of the wound and cleaned up the skin edges with sharp dissection. Purulent material was encountered at this level we performed aerobic and anaerobic cultures. I elected to extend the area of debridement by making an incision along the dorsum of the right ring finger to the midportion of the dorsal aspect of the proximal phalanx. We encountered a great deal of purulent material in this area. Additional cultures were taken in this area of increased purulent material noted at the level of the midportion of the proximal phalanx to the area of the midportion of the middle phalanx. Used a sponge to debride phlegmon-like Collection of organized purulent material as well as curettes. Pickup and scissors dissection was used to debride subcutaneous tissue. The wound was denny irrigated with Betadine-containing saline solution and antibiotic containing saline solution. Extensor tendon mechanism was intact. We now loosely close the wound with interrupted sutures of 4-0 nylon. I placed a retention suture in the midportion of the area of full-thickness skin loss on the dorsum of the right ring finger at the level of the DIP joint to help cover the underlying exposed tendon. Radial to decrease the opening to approximately 3 mm medial collateral distance 4 mm in depth by 1 cm in length. I applied silver sorb gel to the incision line. A digital block was performed with a 50-50 mixture 1% lidocaine and half percent Marcaine plain. Sterile dressings were applied and the patient was placed in a padded fiberglass splint with an Rocael overwrap. Tourniquet was deflated during application of dressings. The patient was aroused from general anesthesia. He was taken to the recovery room. He tolerated surgery well. All counts are correct.
[2020-02-20] MEDS: sodium chloride 0.9% 1,000 ML 100 ML IV (08:21)
--- NOTE | 2020-02-20 08:44 | P.ANESASSM_ITS ---
Pre-Anesthetic Assessment Pre-Anesthetic Assessment: Height/Weight: Height 1.7 m Weight 78.925 kg Temp Pulse Resp BP Pulse Ox 97.6 F 68 20 H 110/65 98 02/20/20 08:00 02/20/20 08:00 02/20/20 08:00 02/20/20 08:00 02/20/20 08:00 Preop Diagnosis: abscess right ring finger Proposed Procedure: Operation Date: 02/20/20 09:00 Proposed Procedures p Incision & Drainage Upper Extremity(Not Applicable) - Matt Peterson DO Familial anesthetic complications: none Last intake: Intake Last Liquid Date 02/19/20 Last Liquid Time 23:00 Last Solid Date 02/19/20 Last Solid Time 21:00 Social: Comment: former smoker Exam: Pre-Anes Outpt Exam: alert, oriented x 3, clear to auscultation bilaterally and regular rate & rhythm Airway: Cervical ROM: WNL MP: 2 Dentition: Full Musc/skel: Comments: R finger cellulitis Anesthetic Plan: ASA status: 1 Anesthesia: General Risk of > 500 ml blood loss (7ml/kg in children): No Meds/Allergies Current Medications: Current Medications Generic Name Dose Route Start Last Admin Trade Name Freq PRN Reason Stop Dose Admin Hydrocodone Bitart /Acetaminophen 1 tab 02/19/20 11:19 02/19/20 16:12 Malmo 5-325 Mg PO 1 tab Q6H PRN Administration pain Piperacillin Sod/T azobactam 50 mls @ 12.5 mls /hr 02/19/20 12:45 02/20/20 04:26 Sod 3.375 gm/ So dium Chloride IV 12.5 mls/hr Q8H LUIS Administration Protocol As Directed Vancomycin HCl 1,5 00 mg/ 250 mls @ 166.667 mls/hr 02/19/20 15:00 02/20/20 06:44 Sodium Chloride IV 166.7 mls/hr Q8H LUIS Administration Protocol As Directed Sodium Chloride 1,000 mls @ 100 m ls/hr 02/19/20 14:30 02/20/20 08:21 Sodium Chloride 0.9% IV 100 mls/hr .Q10H LUIS Administration Ketorolac Trometha mine 30 mg 02/19/20 14:30 02/20/20 08:21 Toradol IVP 02/24/20 14:29 30 mg Q6H LUIS Administration PFSH Anesthesia PFSH: Medical History (Updated 02/20/20 @ 07:59 by Matt Peterson DO) Abscess of right ring finger No significant past medical history Surgical History No history of previous surgery Family History Mother No problems noted. Father No problems noted. Social History Smoking and tobacco status: never smoked Alcohol intake: never Substance/Drug Use: never Current occupation: Works in a [employer] Supplemental PFSH Information: Patient denies any family history of heart disease, diabetes, or stroke Data Anesthesia CBC & Chem 7: 02/20/20 05:46 02/20/20 05:46 Other Labs: Laboratory Results - last 48 hr 02/19/20 02/19/20 02/19/20 06:43 06:43 06:43 WBC 16.3 H RBC 4.44 Hgb 14.2 Hct 41.1 L MCV 92.6 MCH 32.0 MCHC 34.5 RDW 12.1 Plt Count 208 MPV 10.9 H Neut % (Auto) 82.1 Lymph % (Auto) 6.0 Crisp % (Auto) 10.4 Eos % (Auto) 1.0 Baso % (Auto) 0.2 Neut # (Auto) 13.33 H Lymph # (Auto) 1.0 Crisp # (Auto) 1.7 H Eos # (Auto) 0.2 Baso # (Auto) 0.0 Nucleated RBC % (auto) 0 Nucleated RBCs # 0.0 ESR 18 H Sodium 134 L Potassium 3.5 Chloride 99 Carbon Dioxide 26 Anion Gap 12.5 BUN 7 Creatinine 0.5 L GFR Calculation 192.7 H Glucose 127 H Calculated Osmolality 275 L Calcium 8.4 L Total Bilirubin 0.8 AST 22 ALT 25 Alkaline Phosphatase 69 C-Reactive Protein 34.2 H Total Protein 7.2 Albumin 4.3 Globulin 2.9 02/20/20 02/20/20 05:46 05:46 WBC 13.3 H RBC 4.13 Hgb 13.4 Hct 40.0 L MCV 96.9 H MCH 32.4 MCHC 33.5 RDW 12.5 Plt Count 182 MPV 10.3 Neut % (Auto) 76.4 Lymph % (Auto) 10.6 Crisp % (Auto) 9.9 Eos % (Auto) 2.3 Baso % (Auto) 0.3 Neut # (Auto) 10.12 H Lymph # (Auto) 1.4 Crisp # (Auto) 1.3 H Eos # (Auto) 0.3 Baso # (Auto) 0.0 Nucleated RBC % (auto) 0 Nucleated RBCs # 0.0 ESR Sodium 138 Potassium 4.6 Chloride 105 Carbon Dioxide 28 Anion Gap 9.6 BUN 9 Creatinine 0.6 L GFR Calculation 156.1 H Glucose 108 Calculated Osmolality 283 L Calcium 8.7 Total Bilirubin AST ALT Alkaline Phosphatase C-Reactive Protein Total Protein Albumin Globulin Micro: Microbiology 02/19/20 06:45 Blood Culture - Preliminary Blood NEGATIVE TO DATE 02/19/20 06:40 Blood Culture - Preliminary Blood NEGATIVE TO DATE Cardiac Studies: No Data to Display
[2020-02-20] MEDS: clindamycin 600 MG/50 ML PREMIX 100 MG IV (09:07)
[2020-02-20] MEDS: lidocaine 1% INJ 20 mL INJECTION (10:02)
[2020-02-20] MEDS: silvasorb gel 44.4 mL 1 APPLIC TOPICAL (10:03)
--- NOTE | 2020-02-20 10:33 | SUR.PHASEI ---
1028 PATIENT TO PACU FROM OR. RR EVEN AND UNLABORED. SPO2 98% ON RA. DRESSING CDI, TO RIGHT HAND WITH SINGH WRAP. CAP REFILL LESS THAN 3 SECONDS.
--- NOTE | 2020-02-20 11:04 | SUR.PHASEI ---
1045 PATIENT TO MED SURG. RR EVEN AND UNLABORED. NO DISTRESS. RATES PAIN 4/10, DRESSING TO RIGHT HAND, CDI. PATIENT AMBULATORY FROM GURNEY TO BED WITH STEADY GAIT WHEN ARRIVING TO MED SURG.
--- NOTE | 2020-02-20 12:08 | P.PN_ITS ---
Subjective Subjective: Interval history: No issues overnight. Surgery already performed today. Pain under control. History and physical reviewed. Medications: Reviewed: Yes Vitals/I&O/Wt Last Vital Signs Temp 97.9 F 02/20/20 11:19 Pulse 69 02/20/20 11:50 Resp 18 02/20/20 11:50 BP 107/65 02/20/20 11:50 Pulse Ox 98 02/20/20 11:50 02/19/20 02/20/20 02/20/20 22:59 06:59 14:59 Intake Total 1290 / 1410 1300 / 2710 350 / 350 Output Total 850 / 850 5 / 5 Balance 440 / 560 1300 / 1860 345 / 345 Weight last 48 hrs Weight 78.925 kg Weight 79.379 kg Physical Exam Narrative: EXAM NARRATIVE: General exam no apparent distress Cardiovascular regular rate and rhythm without murmur Lungs clear Abdomen is soft with positive bowel sounds Extremities no cyanosis clubbing or edema, right hand with dressing. Data : 02/20/20 05:46 02/20/20 05:46 Micro: Microbiology 02/20/20 09:45 Gram Stain - Final Finger - #3 02/20/20 09:45 Gram Stain - Final Finger - #3 02/19/20 06:45 Blood Culture - Preliminary Blood NEGATIVE TO DATE 02/19/20 06:40 Blood Culture - Preliminary Blood NEGATIVE TO DATE A&P Assessment and plan (1) Cellulitis: Right fourth digit hand cellulitis with abscess, status post I&D this morning by Dr. Peterson. Continue vancomycin and Zosyn White blood cell count decreased significantly MRI performed demonstrated no osteomyelitis. Status: Acute Qualifiers: Laterality: right Site of cellulitis: extremity Site of cellulitis of extremity: finger Qualified Code(s): L03.011 - Cellulitis of right finger Additional A&P Information SCDs for DVT prophylaxis Full code Attestations Medical Necessity Statement*: Needs continued hospitalization for IV antibiotics regarding cellulitis. Coding Level of Care Code Acute Control Tower Operator for g Fwd Diagnoses Cellulitis L03.011 Laterality: right Site of cellulitis: extremity Site of cellulitis of extremity: finger
[2020-02-21] VITALS: BP 113/66; PULSE 74; RESP 18; TEMP 36.8; O2SAT 97
[2020-02-21] MEDS: ketorolac 30 mg/mL INJ IVP ×2 (02:08→08:45)
[2020-02-21 04:00] VITALS: BP 108/64; PULSE 74; RESP 18; TEMP 37.1; O2SAT 98
[2020-02-21] MEDS: piperacillin-tazobactam 3.375 GM in sodium chloride 0.9% (plus) 50 ML IV (04:05)
[2020-02-21 05:53] LABS: Basophils % 0.4 %; Eosinophils # 0.3 10^3/uL (0.0-0.8); Eosinophils % 3.6 %; Hematocrit 37.1 % (42.0-52.0); Hemoglobin 12.5 g/dL (11.7-16.6); Lymphocytes # 1.5 10^3/uL (0.8-4.8); Lymphocytes % 16.7 %; Mean Corpuscular HGB Conc 33.7 g/dL (30.0-36.0); Mean Corpuscular Hemoglobin 32.1 pg (28.0-34.0); Mean Corpuscular Volume 95.1 fL (80-94); Mean Platelet Volume 11.4 fL (7.4-10.4); Monocytes # 0.8 10^3/uL (0.2-0.9); Monocytes % 9.1 %; Neutrophils # 6.39 10^3/uL (1.8-7.7); Neutrophils % 69.9 %; Nucleated Red Blood Cells % 0 %; Platelet Count 159 10^3/cmm (130-400); Red Cell Distribution Width 12.1 % (12.1-15.1); White Blood Count 9.2 10^3/uL (4.0-10.0)
[2020-02-21 06:18] LABS: Anion Gap 10.6 (5-19); Blood Urea Nitrogen 7 mg/dL (6-20); Calcium 8.6 mg/dL (8.5-10.5); Carbon Dioxide 25 mmol/L (22-29); Chloride 108 mmol/L (98-107); Glomerular Filtration Rate 156.1 mL/min (90-130); Glucose 97 mg/dL (65-115); Osmolality Calculated 286 mOsm/kg (285-295); Potassium 3.6 mmol/L (3.5-5.1); Sodium 140 mmol/L (136-145)
--- NOTE | 2020-02-21 07:38 | PM.PN ---
Subjective Subjective: Interval history: 34-year-old white male postoperative day 1 status post incision and drainage with debridement and partial primary closure of right ring finger abscess. Vitals/I&O/Wt Last Vital Signs Temp 98.7 F 02/21/20 04:00 Pulse 74 02/21/20 04:00 Resp 18 02/21/20 04:00 BP 108/64 02/21/20 04:00 Pulse Ox 98 02/21/20 04:00 02/20/20 02/21/20 02/21/20 22:59 06:59 14:59 Intake Total 660 / 2310 50 / 2360 Output Total 535 / 540 Balance 125 / 1770 50 / 1820 Weight last 48 hrs Weight 174 lb Physical Exam Narrative: EXAM NARRATIVE: 34-year-old white male in no acute distress. He is alert and cooperative. His postoperative dressing is removed.Erythema on the dorsum of the hand has largely resolved. The reddish and purplish appearance of the left ring finger has improved. Sutures are in place. Sensation and capillary refill to the right ring finger is intact. Patient rates pain 1/10 at the present time. Incision was cleansed with saline followed by application of silver sorb gel a Telfa dressing is applied followed by a folded 4 x 4's and then overwrapped with a Ipyush which is taped into place. Occupational therapy will be applying a TKO brace to immobilize the ring and small fingers. White blood cell count decreased now normal. Gram stain shows white blood cells and gram-positive cocci in pairs and clusters sensitivity and specific identification pending Data : 02/21/20 05:00 02/21/20 05:00 Micro: Microbiology 02/20/20 09:45 Gram Stain - Final Finger - #3 02/20/20 09:45 Gram Stain - Final Finger - #3 02/19/20 06:45 Blood Culture - Preliminary Blood NEGATIVE TO DATE 02/19/20 06:40 Blood Culture - Preliminary Blood NEGATIVE TO DATE A&P Assessment and plan (1) Abscess of right ring finger: will change dressing today during rounds--done discussed with hospitalist patient will be discharged on Bactrim after receiving intravenous vancomycin today. Prescription for Bactrim and hydrocodone written. 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
[2020-02-21 08:00] VITALS: BP 112/68; PULSE 75; RESP 18; TEMP 36.9; O2SAT 98
[2020-02-21] MEDS: silvasorb gel 44.4 mL 1 APPLIC TOPICAL (08:48)
--- NOTE | 2020-02-21 09:44 | P.DS_ITS ---
Discharge Providers Date of Admission: 02/19/20 08:57 Date of Discharge: February 21, 2020 Attending Provider at Admission: Nicolle Guzman DO Attending Provider at Discharge: Seb Perez MD Diagnoses at Discharge Discharge Diagnosis (1) Abscess of right ring finger: Status: Acute Problem details: Status post incision and drainage, February 19 (2) Cellulitis: Status: Acute Problem details: Significantly improved Qualifiers: Laterality: right Site of cellulitis: extremity Site of cellulitis of extremity: finger Qualified Code(s): L03.011 - Cellulitis of right finger Reason for Visit Reason for Visit: spider bite Hospital Course Hospital Course: Chris is a 34-year-old male who presented with cellulitis of the right ring finger. White blood cell count was elevated. Orthopedics was consulted. MRI and CT was performed. No evidence of osteomyelitis. He went for incision and drainage of the abscess that had accumulated there during his hospital stay on February 19. Following surgery he was doing excellent with significantly diminished pain, and white blood cell count had returned to normal. It was thought he could be discharged February 20, and follow-up with orthopedics later this week, on Saturday. He will discharged on Bactrim. Blood culture negative to date on dischcarge. Culture growth was early on abscess drainage, with Gram stain showing gram-positive cocci. Physical Exam Narrative: EXAM NARRATIVE: General exam no apparent distress Cardiovascular regular in rhythm without murmur Lungs clear Extremities no cyanosis clubbing or edema, index finger on the right with dressing. Inspected by orthopedics. Discharge Data Data Completed and Pending: Completed Studies During Hospitalization Category Date Time Status CT hand RT w con [id number] Urgent Cat Scan 02/19/20 06:28 Com[place] MR hand RT wo/[place] [id number] Urgent MRI 02/19/20 09:30 Completed Pending at discharge Category Date Time Status Abscess Culture a nd Gram Stain Rout ine Lab 02/20/20 09:45 Results Abscess Culture a nd Gram Stain Rout ine Lab 02/20/20 09:45 Results Anaerobic Culture Routine Lab 02/20/20 09:45 Results Anaerobic Culture Routine Lab 02/20/20 09:45 Results Basic Metabolic P yanet AM LABS Lab 02/22/20 04:00 Ordered Blood Culture Sta t Lab 02/19/20 06:45 Results Complete Blood Co unt w/Auto AM LABS Lab 02/22/20 04:00 Ordered Vancomycin Trough Routine Lab 02/21/20 07:25 Received Labs from last 24 hours 02/21/20 02/21/20 02/21/20 07:25 05:00 05:00 WBC 9.2 RBC 3.90 L Hgb 12.5 Hct 37.1 L MCV 95.1 H MCH 32.1 MCHC 33.7 RDW 12.1 Plt Count 159 MPV 11.4 H Neut % (Auto) 69.9 Lymph % (Auto) 16.7 [place] % (Auto) 9.1 Eos % (Auto) 3.6 Baso % (Auto) 0.4 Neut # (Auto) 6.39 Lymph # (Auto) 1.5 [place] # (Auto) 0.8 Eos # (Auto) 0.3 Baso # (Auto) 0.0 Nucleated RBC % (a uto) 0 Nucleated RBCs # 0.0 Sodium 140 Potassium 3.6 Chloride 108 H Carbon Dioxide 25 Anion Gap 10.6 BUN 7 Creatinine 0.6 L GFR Calculation 156.1 H Glucose 97 Calculated Osmolal ity 286 Calcium 8.6 Vancomycin Trough Pending Vitals: Last Vital Signs Temp 98.5 F 02/21/20 08:00 Pulse 75 02/21/20 08:00 Resp 18 02/21/20 08:00 BP 112/68 02/21/20 08:00 Pulse Ox 98 02/21/20 08:00 Discharge Plan Discharge Patient Disposition: Home Condition: Stable Prescriptions: New hydrocodone-acetaminophen 5-325 mg tablet 1 tab PO Q4H Qty: 30 RF: 0 sulfamethoxazole-trimethoprim [Bactrim DS] 800-160 mg tablet 1 tab PO BID 14 Days Qty: 28 RF: 0 Discontinued hydrocodone-acetaminophen 5-325 mg tablet 1 tab PO Q6H PRN (Reason: pain) Qty: 7 RF: 0 Referrals: Matt Peterson DO [Physician] - 02/24/20 10:00 am Discharge Diet: Usual diet Discharge Activity: Limit activity as instructed Activity Restrictions/Additional Instructions: Keep dressing on Keep dressing clean and dry Keep removable splint on until seen in the office on Saturday May shower by placing plastic bag over hand with dressing and splint on. May use a moist washcloth to clean thumb index and long fingers which will remain exposed. No lifting greater than 2 pounds with the right hand to prevent stress to incision line and sutures. Elevate right hand to decrease pain and swelling May apply ice pack to hand to decrease pain and swelling Call office at [phone] if any questions or concerns No returning to work until cleared medically. 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
[2020-02-21 10:01] VITALS: BP 112/68; PULSE 75; RESP 18; TEMP 36.9; O2SAT 98
[2020-02-21 10:21] LABS: Vancomycin Trough 12.7 ug/mL (10-15)
== END 2020-02-21 11:01 | disposition home or self-care (01) | DRG 580 ==
LOC: ER 08:22 → MEDSURG 09:15
PROVIDERS: Orthopaedic Surgery; Admitting Provider Family Medicine; Emergency Provider Family Medicine; Visit Provider Internal Medicine
PROC: 0JBJ0ZZ Excision of Right Hand Subcutaneous Tissue and Fascia, Open Approach (ICD-10-PCS; principal; 2020-02-20 09:00)
DX: L03.011 Cellulitis of right finger (principal); L02.511 Cutaneous abscess of right hand
CPT/HCPCS: 12345; 36415; 73201; 73220; 80048; 80053; 80202; 85025; 85651; 86140; 87040; 87070; 87075; 87077; 87186; 87205; 96375; 99283; A9579; J1580; J1885; J2270; J2405; J2543; J2704; J3010; J3370; J3490; J7030; J7050; L3807; Q9967